=== PATIENT | female | born 1985 | race Caucasian/White ===

== ENCOUNTER 2018-09-13 05:09 | Emergency (ER) | payer SELFPAY | END 2018-09-13 05:11 | disposition left against medical advice (07) | LOC: ER 05:09 | DX: Z53.21 Procedure and treatment not carried out due to patient leaving prior to being seen by health care provider (principal) ==

== ENCOUNTER 2018-09-13 20:43 | Emergency (ER) | payer SELFPAY ==
[2018-09-13] MEDS ORDERED: SULFAMETHOXAZOLE/TRIMETHOPRIM 800-160 MG TABLET PO ONE (21:26)
[2018-09-13] MEDS ORDERED: CEPHALEXIN 500 MG CAPSULE PO ONE (21:26)
[2018-09-13] MEDS ORDERED: PROMETHAZINE HCL 25 MG TABLET PO ONE (21:27)
--- NOTE | 2018-09-13 21:28 | ER Document Report ---
HPI - HPI Time Seen by Provider: 09/13/18 21:18 Pain Level: 4 Context: Patient is a 33-year-old female that comes to the emergency department for chief complaint of redness, pain, and difficulty bending her left ring finger. She states that there is a scab along the side underneath the area of developing redness. She denies injury. 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 She is uncertain of foreign body. She states this happened yesterday and has worsened. She is not a diabetic. - REPRODUCTIVE Reproductive: DENIES: : Past Medical History - General Information source: Patient - Social History Smoking Status: Current Every Day Smoker Frequency of alcohol use: None Drug Abuse: None Lives with: Family Family History: Reviewed & Not Pertinent Patient has suicidal ideation: No Patient has homicidal ideation: No - Medical History Medical History: Negative Renal/ Medical History: Denies: Hx Peritoneal Dialysis Past Surgical History: Reports: Hx Appendectomy, Hx Section, Hx Tons illectomy - Immunizations Immunizations up to date: Yes Hx Diphtheria, Pertussis, Tetanus Vaccination: Yes Vertical Provider Document - CONSTITUTIONAL General Appearance: WD/WN, No Apparent Distress - INFECTION CONTROL TRAVEL OUTSIDE OF THE [place] IN LAST 30 DAYS: No - HEENT HEENT: Atraumatic, Normocephalic - NECK Neck: Normal Inspection - RESPIRATORY Respiratory: Breath Sounds Normal, No Respiratory Distress - CARDIOVASCULAR Cardiovascular: Regular Rate, Regular Rhythm - GI/ABDOMEN Gastrointestinal: Abdomen Soft, Abdomen Non-Tender - BACK Back: Normal Inspection - MUSCULOSKELETAL/EXTREMETIES Musculoskeletal/Extremeties: Tender - Left ring finger with 3 small abrasions over the side of the finger at the lateral aspect, the central abrasion has a scab over it and there is some surrounding erythema, minimal soft tissue swelling, and area consistent with cellulitis. Range of motion is intact. There is no induration or fluctuance to the area. Remaining hand exam unremarkable. Normal capillary refill and sensation. Normal upper extremity exam otherwise. Course - Re-evaluation Re-evalutation: X-ray showing some soft tissue swelling, examination is consistent with a wound and secondary cellulitis. No foreign body. No induration or fluctuance. Range of motion is intact. I discussed with patient. She is not a diabetic, she has not had a fever, she denies any IV drug abuse history, denies any significant past medical history. Wound will be marked, patient will be placed on antibiotics for cellulitis, patient will have close follow-up with orthopedic surgeon in the office, and she will return immediately if she worsens in any way. I discussed this in detail with patient. Patient states understanding and agreement with plan. - Vital Signs Vital signs: Temp Pulse Resp BP Pulse Ox 98.1 F 84 18 133/75 H 100 09/13/18 20:54 09/13/18 20:54 09/13/18 20:54 09/13/18 20:54 09/13/18 20:54 Discharge - Discharge Clinical Impression: Cellulitis of finger of left hand Condition: Stable Disposition: HOME, SELF-CARE Additional Instructions: Take the Bactrim and Keflex antibiotics as prescribed for the infection in the finger. Rest the hand. Keep clean with soap/water, dab dry. Follow up with the Orthopedics referral listed (call tomorrow to set this up). Return to the ED if you worsen in any way (spreading redness, increased swelling or inability to bend the finger, fever/chills, etc. Prescriptions: Cephalexin Monohydrate [Keflex 500 mg Capsule] 500 mg PO QID #28 capsule Promethazine HCl [Phenergan 25 mg Tablet] 25 mg PO Q6H PRN #15 tablet PRN Reason: Sulfamethoxazole/Trimethoprim [Bactrim Ds Tablet] 1 each PO BID #14 tablet Referrals: BARON AGUIRRE DO [ACTIVE STAFF] - Follow up tomorrow
[2018-09-13] MEDS ORDERED: IBUPROFEN 800 MG TABLET PO ONE (21:50)
--- NOTE | 2018-09-13 23:42 | RADIOLOGY REPORT (SQ) ---
EXAM DESCRIPTION: XR FINGERS COMPLETED DATE/TME: 09/13/2018 21:26 CLINICAL HISTORY: 33 years, Female, left ring finger swelling; ? foreign body COMPARISON: None. NUMBER OF VIEWS: 3 TECHNIQUE: 3 views of the left fourth digit LIMITATIONS: None. FINDINGS: Diffuse soft tissue swelling. Negative for acute fracture or dislocation. No soft tissue gas. No radiopaque foreign body. IMPRESSION: Soft tissue swelling. No acute osseous abnormality copyright 2010 [employer]- All Rights Reserved
[2018-09-14 00:35] VITALS: BP 98/50
== END 2018-09-14 00:35 | disposition home or self-care (01) ==
LOC: ER 20:43
DX: S60.415A Abrasion of left ring finger, initial encounter (principal); L03.012 Cellulitis of left finger; X58.XXXA Exposure to other specified factors, initial encounter; F17.200 Nicotine dependence, unspecified, uncomplicated
CPT/HCPCS: 99283

== ENCOUNTER 2018-10-06 10:47 | Emergency (ER) | payer SELFPAY ==
[2018-10-06] MEDS ORDERED: IBUPROFEN 600 MG TABLET PO ONE (12:07)
--- NOTE | 2018-10-06 12:09 | ER Document Report ---
ED Medical Screen (RME) - General Chief Complaint: Abdominal Cramping Stated Complaint: ABDOMINAL PAIN/CRAMPING/FEVER Time Seen by Provider: 10/06/18 11:57 Notes: 33-year-old female patient emergency department complaint of lower pelvic pain and fever. States that she is having some abnormal vaginal bleeding as well. Does not think she is . Denies any other symptoms. Has been wearing a heating pad on her lower abdomen to help. Has not taken anything yet for pain. Has taken some Zofran because she had some nausea. I have greeted and performed a rapid initial assessment of this patient. A comprehensive ED assessment and evaluation of the patient, analysis of test results and completion of the medical decision making process will be conducted by additional ED providers. TRAVEL OUTSIDE OF THE [place] IN LAST 30 DAYS: No - Related Data Allergies/Adverse Reactions: No Known Allergies Allergy (Verified 10/06/18 10:55) Past Medical History Renal/ Medical History: Denies: Hx Peritoneal Dialysis Past Surgical History: Reports: Hx Appendectomy, Hx Section, Hx Tonsillectomy - Immunizations Immunizations up to date: Yes Hx Diphtheria, Pertussis, Tetanus Vaccination: Yes Physical Exam - Vital signs Vitals: Temp Pulse Resp BP Pulse Ox 98.2 F 92 16 124/75 99 10/06/18 10:55 10/06/18 10:55 10/06/18 10:55 10/06/18 10:55 10/06/18 10:55 Course - Vital Signs Vital signs: Temp Pulse Resp BP Pulse Ox 98.2 F 92 16 124/75 99 10/06/18 10:55 10/06/18 10:55 10/06/18 10:55 10/06/18 10:55 10/06/18 10:55
[2018-10-06 12:48] LABS: APPEARANCE,URINE SLIGHTLY-CLOUDY; BILIRUBIN,URINE NEGATIVE (NEGATIVE); COLOR,URINE YELLOW; GLUCOSE, URINE NEGATIVE (NEGATIVE); KETONES,URINE NEGATIVE (NEGATIVE); LEUKOCYTE ESTERASE,URINE MODERATE (NEGATIVE); NITRITE,URINE NEGATIVE (NEGATIVE); PROTEIN,URINE NEGATIVE (NEGATIVE); UROBILINOGEN,URINE NEGATIVE mg/dL (<2.0)
--- NOTE | 2018-10-06 12:50 | ER Document Report ---
ED General - General Chief Complaint: Abdominal Cramping Stated Complaint: ABDOMINAL PAIN/CRAMPING/FEVER Time Seen by Provider: 10/06/18 11:57 TRAVEL OUTSIDE OF THE [place] IN LAST 30 DAYS: No - HPI Notes: Patient is a 33-year-old female who presents the emergency department complaining of lower pelvic pain primarily to the midline, but does go bilaterally with some vaginal discharge noted over the last couple days. Patient states that she is also had nasal congestion/discharge, dry nonproductive cough, and feeling feverish over the last day as well. She still eating and drinking without difficulty. She is urinating normally and having normal bowel movements although she has issues with constipation. Denies drug allergies. Patient is not sure if she is . Denies any headache, neck pain, sore throat, chest pain, palpitations, syncope, shortness of breath, wheeze, dyspnea, nausea/vomiting/diarrhea, urinary retention, dysuria, hematuria, back pain, or rash. Surgical history of appendectomy. - Related Data Allergies/Adverse Reactions: No Known Allergies Allergy (Verified 10/06/18 10:55) Past Medical History - Social History Smoking Status: Current Every Day Smoker Frequency of alcohol use: Occasional Drug Abuse: None Family History: Reviewed & Not Pertinent Patient has suicidal ideation: No Patient has homicidal ideation: No Renal/ Medical History: Denies: Hx Peritoneal Dialysis Past Surgical History: Reports: Hx Appendectomy, Hx Section, Hx Rectal Surgery, Hx Tonsillectomy - Immunizations Immunizations up to date: Yes Hx Diphtheria, Pertussis, Tetanus Vaccination: Yes Review of Systems - Review of Systems -: Yes All other systems reviewed and negative Physical Exam - Vital signs Vitals: Temp Pulse Resp BP Pulse Ox 98.2 F 92 16 124/75 99 10/06/18 10:55 10/06/18 10:55 10/06/18 10:55 10/06/18 10:55 10/06/18 10:55 - Notes Notes: PHYSICAL EXAMINATION: GENERAL: Well-appearing, well-nourished and in no acute distress. HEAD: Atraumatic, normocephalic. EYES: Pupils equal round and reactive to light, extraocular movements intact, conjunctiva are normal. ENT: Nares patent with clear discharge, oropharynx clear withoutexudates. Moist mucous membranes. EAC's clear bilaterally. TMs intact bilaterally without erythema fluid or perforation. No tonsillar hypertrophy or erythema. No sinus tenderness. NECK: Normal range of motion, supple without lymphadenopathy LUNGS: Breath sounds clear to auscultation bilaterally and equal. No wheezes rales or rhonchi. HEART: Regular rate and rhythm without murmurs ABDOMEN: Soft, nondistended abdomen. No guarding, no rebound. Normal bowel sounds present. CVA tenderness negative bilaterally. + lower pelvic tenderness. Female : No inguinal adenopathy. External genitalia without erythema, lesions, or masses. Vaginal mucosa pink with purulent discharge. Cervix parous, pink, and without discharge. Uterus is smooth. No adnexal tenderness. + mild CMT. accompanied by female pctramesh. Musculoskeletal: FROM to passive/active. Strength 5+/5. Extremities: No cyanosis/clubbing/edema b/l. Peripheral pulses 2+. Capillary refill less than 3 seconds. NEUROLOGICAL: Normal speech, normal gait. PSYCH: Normal mood, normal affect. SKIN: Warm, Dry, normal turgor, no rashes or lesions noted. Course - Re-evaluation Re-evalutation: 10/06/18 15:33 Patient is an afebrile, well-hydrated, 33-year-old female who presents to the ED with an acute URI, pelvic pain, and ovarian cyst, ?PID/UTI. Vitals are acceptable without any significant tachycardia, tachypnea, or hypoxia. PE did show mild + CMT. HCG negative. See UA/UC pending. See wet mount results. Chlam/gonorrhea tests are pending. Patient given rocephin and zithromax. Patient is nontoxic-appearing is tolerating p.o. without any difficulties. Transvaginal ultrasound showed hemorrhagic cyst rt side. No other labs or imaging warranted at this time based on H&P. Low suspicion/risk for acute appendicitis, bowel obstruction, acute cholecystitis, acute cholangitis, perforated diverticulitis, incarcerated hernia, pancreatitis, perforated ulcer, peritonitis, sepsis, ectopic , tubo-ovarian abscess, ovarian torsion, or other systemic emergent condition at this time. Patient is aware that her condition can change from initial presentation and she needs to monitor symptoms closely and seek medical attention if any acute changes. I will send her home with prescription for doxy and naproxen. Conservative measures otherwise for symptoms. Recheck with your PCM/OBGYN in 3-5 days. Return to the ED with any worsening/concerning symptoms otherwise as reviewed in discharge. Patient is in agreement. - Vital Signs Vital signs: Temp Pulse Resp BP Pulse Ox 98.2 F 92 16 124/75 99 10/06/18 10:55 10/06/18 10:55 10/06/18 10:55 10/06/18 10:55 10/06/18 10:55 - Laboratory Laboratory results interpreted by me: 10/06/18 12:12 Urine Blood SMALL H Ur Leukocyte Esterase MODERATE H Procedures - Pelvic Exam Pelvic exam Time completed: 12:45 Cultures obtained: Yes Wet prep obtained: Yes Bimanual exam performed: Yes - mildly positive Witnessed by: jose g chandler Discharge - Discharge Clinical Impression: Pelvic pain, Acute URI Ovarian cyst Qualifiers: Laterality: right Qualified Code(s): N83.201 - Unspecified ovarian cyst, right side Condition: Stable Disposition: HOME, SELF-CARE Instructions: Pelvic Pain ([facility]), Ovarian Cyst ([facility]) Additional Instructions: Maintain fluid intake Proper hygienic technique Keep the skin clean Safe sexual practices with condoms everytime Tylenol/ibuprofen as needed F/u with your PCM/OBGYN in 3-5 days for a recheck Return to the ED with any development of CAMEJO/fever, trouble with vision, eye redness, worsening pain, urethral discharge, urinary retention, blood in the urine, flank pain, abdominal pain, n/v, Chest Pain, shortness of breath, joint pains, trouble breathing, or any other worsening/concerning symptoms as needed otherwise. Prescriptions: Doxycycline Hyclate 100 mg PO BID #28 capsule Naproxen 500 mg PO BID #20 tablet Forms: Smoking Cessation Education Referrals: [facility] [Provider Group] - Follow up as needed
[2018-10-06 13:32] LABS: BACTERIA (WET MOUNT) 4+ BACTERIA SEEN; RBCS (WET MOUNT) NO RBCS SEEN; T.VAGINALIS (WET MOUNT) NO TRICHOMONAS SEEN; WBCS (WET MOUNT) 4+ WBCS SEEN; YEAST (WET MOUNT) NO YEAST SEEN
[2018-10-06] MEDS ORDERED: LIDOCAINE 1% INJ-PF (10 MG/ML) 30 ML SDV INJ ONE (13:34)
[2018-10-06] MEDS ORDERED: CEFTRIAXONE INJ 250 MG VIAL IM ONE (13:34)
[2018-10-06] MEDS ORDERED: AZITHROMYCIN 250 MG TABLET PO ONE (13:34)
[2018-10-06] MEDS ORDERED: ONDANSETRON 4 MG TAB.RAPDIS PO ONE (13:57)
[2018-10-06 15:02] LABS: CHLAM PCR NOT DETECTED (NOT DETECT); GON PCR NOT DETECTED (NOT DETECT)
--- NOTE | 2018-10-06 15:17 | RADIOLOGY REPORT (SQ) ---
EXAM DESCRIPTION: U/S NON OB PEL TV W/DOPPLER COMPLETED DATE/TIME: 10/06/2018 2:47 pm REASON FOR STUDY: pelvic pain COMPARISON: None. TECHNIQUE: Dynamic and static grayscale images acquired of the pelvis via transvaginal approach and recorded on PACS. Additional selected color Doppler and spectral images recorded. LIMITATIONS: None. FINDINGS: UTERUS: Contour normal. No mass. ENDOMETRIAL STRIPE: No focal or generalized thickening. No masses. CERVIX: No nabothian cysts. RIGHT OVARY AND DOPPLER: Normal size. 1.8 cm system with internal echoes. No worrisome masses. Norm al arterial vascular flow without evidence for torsion. LEFT OVARY AND DOPPLER: Normal size. No worrisome masses. Normal arterial vascular flow without evide nce for torsion. FREE FLUID: Small amount. OTHER: No other significant finding. MEASUREMENTS: UTERUS: 8.6 x 5.0 x 4.1 cm ENDOMETRIAL STRIPE: 8 mm RIGHT OVARY: 2.9 x 1.9 x 2.4 cm LEFT OVARY: 2.7 x 2.2 x 2.1 cm IMPRESSION: Small hemorrhagic cyst right ovary. TECHNICAL DOCUMENTATION: JOB ID: [id number]- All Rights Reserved Rev-01/16 Reading location - IP/workstation name: [email or web address]
[2018-10-06 15:52] VITALS: BP 116/82
== END 2018-10-06 15:53 | disposition home or self-care (01) ==
LOC: ER 10:47
DX: N83.201 Unspecified ovarian cyst, right side (principal); R10.2 Pelvic and perineal pain; J06.9 Acute upper respiratory infection, unspecified; N89.8 Other specified noninflammatory disorders of vagina; R05 Cough; R09.81 Nasal congestion; F17.200 Nicotine dependence, unspecified, uncomplicated
CPT/HCPCS: 99284; 96372; 36415; 87086; 87210; 81025; 81001; 87491; 87591; 76830; 93976; S0119; J3490; J0696

== ENCOUNTER 2018-11-28 17:57 | Emergency (ER) | payer SELFPAY ==
[2018-11-28 18:02] VITALS: BP 135/81
--- NOTE | 2018-11-28 18:41 | ER Document Report ---
ED Skin Rash/Insect Bite/Abscs - General Chief Complaint: Skin Sore(s) Stated Complaint: LEG PAIN Time Seen by Provider: 11/28/18 18:21 Mode of Arrival: Ambulatory Information source: Patient Notes: 33-year-old female presented to ED for complaint of painful rash to bilateral lower extremities and redness swelling and tenderness to bilateral knees. She states she has been trying to take care of herself but the pain and redness has increased. She is alert oriented respirations regular and unlabored speaking in full sentences walks with a even steady gait. TRAVEL OUTSIDE OF THE [place] IN LAST 30 DAYS: No - HPI Patient complains to provider of: Skin rash/lesion, Tender/swollen area Onset: Other Onset/Duration: Gradual - Several weeks getting worse, Worse Quality of pain: Burning, Sharp Severity: Moderate Pain Level: 4 Skin Character: Erythema, Rash, Swelling, Tenderness Quality of rash: Painful Identify cause: No Exacerbated by: Other - Moving walking and shaving Relieved by: Denies Similar symptoms previously: Yes Recently seen / treated by doctor: No - Related Data Allergies/Adverse Reactions: No Known Allergies Allergy (Verified 11/28/18 17:57) Past Medical History - General Information source: Patient - Social History Smoking Status: Former Smoker - Vapor cigarette only now Cigarette use (# per day): No Chew tobacco use (# tins/day): No Smoking Education Provided: No Frequency of alcohol use: Social Drug Abuse: Marijuana Lives with: Family Family History: Reviewed & Not Pertinent Patient has suicidal ideation: No Patient has homicidal ideation: No - Past Medical History Cardiac Medical History: Reports: None Pulmonary Medical History: Reports: None EENT Medical History: Reports: None Neurological Medical History: Reports: None Endocrine Medical History: Reports: None Renal/ Medical History: Reports: Hx Ovarian Cysts Malignancy Medical History: Reports: None GI Medical History: Reports: Hx Hepatitis - c, Hx Irritable Bowel, Other - fissure Musculoskeletal Medical History: Reports None Skin Medical History: Reports Hx Cellulitis, Reports Hx Eczema, Reports Hx Psoriasis Psychiatric Medical History: Reports: Hx Anxiety, Other - panic attack Traumatic Medical History: Reports: Hx Spine Fracture - lumbar Infectious Medical History: Reports: Hx Hepatitis - c Past Surgical History: Reports: Hx Appendectomy, Hx Section, Hx Rectal Surgery, Hx Tonsillectomy - Immunizations Immunizations up to date: Yes Hx Diphtheria, Pertussis, Tetanus Vaccination: Yes Review of Systems - Review of Systems Constitutional: No symptoms reported EENT: No symptoms reported Cardiovascular: No symptoms reported Respiratory: No symptoms reported Gastrointestinal: No symptoms reported Genitourinary: No symptoms reported Female Genitourinary: No symptoms reported Musculoskeletal: No symptoms reported Skin: No symptoms reported Hematologic/Lymphatic: No symptoms reported Neurological/Psychological: No symptoms reported Physical Exam - Vital signs Vitals: Temp Pulse Resp BP Pulse Ox 98.4 F 72 18 135/81 H 99 11/28/18 18:01 11/28/18 18:01 11/28/18 18:01 11/28/18 18:01 11/28/18 18:01 Interpretation: Normal - General General appearance: Appears well, Alert - HEENT Head: Normocephalic, Atraumatic Eyes: Normal Pupils: PERRL - Respiratory Respiratory status: No respiratory distress Chest status: Nontender Breath sounds: Normal Chest palpation: Normal - Cardiovascular Rhythm: Regular Heart sounds: Normal auscultation Murmur: No - Abdominal Inspection: Normal Distension: No distension Bowel sounds: Normal Tenderness: Nontender Organomegaly: No organomegaly - Back Back: Normal, Nontender - Extremities General upper extremity: Normal inspection, Nontender, Normal color, Normal ROM, Normal temperature General lower extremity: Normal ROM, Normal temperature, Normal weight bearing. No: Gurpreet's sign Knee: Tender, Pain with ROM, Patellar tendon intact, Other - Erythema. No: Popliteal fossa tender Calf: Tender, Other - Erythema, rash Ankle: Normal, Nontender Foot: Normal, Nontender - Neurological Neuro grossly intact: Yes Cognition: Normal Orientation: AAOx4 Alisha Coma Scale Eye Opening: Spontaneous [place] Coma Scale Verbal: Oriented [place] Coma Scale Motor: Obeys Commands Alisha Coma Scale Total: 15 Speech: Normal Motor strength normal: LUE, RUE, LLE, RLE Sensory: Normal - Psychological Associated symptoms: Normal affect, Normal mood - Skin Skin Temperature: Warm Skin Moisture: Dry Skin Color: Normal Course - Re-evaluation Re-evalutation: 11/28/18 20:00 Patient started on Bactrim Keflex and instructed in use of Epsom salt soaks. She was also instructed on use of Eucerin cream mixed with vitamin E oil and s teroid cream for her psoriasis. - Vital Signs Vital signs: Temp Pulse Resp BP Pulse Ox 98.4 F 72 18 135/81 H 99 11/28/18 18:01 11/28/18 18:01 11/28/18 18:01 11/28/18 18:01 11/28/18 18:01 Discharge - Discharge Clinical Impression: psoriasis both lower legs, Bilateral cellulitis of lower leg Condition: Stable Disposition: HOME, SELF-CARE Instructions: Family Physicians / Practices Additional Instructions: Psoriasis You have psoriasis. This is a common disease, but the cause is unknown. Psoriasis often runs in families. The skin blemishes are usually red with a thick, silvery scale. It is most commonly seen over the knees, elbows, and scalp. The nails may become thickened or pitted. Psoriasis is treated with cortisone cream. You can wrap the area with plastic wrap overnight to increase the effectiveness of the cream. Tar preparations may be used on non-hairy areas. Medicated shampoos are often prescribed. Management by a tester operator helper is advised. CELLULITIS: You have an infection of your skin and underlying soft tissues called cellulitis. This is due to bacteria, which can enter through any break in the skin, or even through an irritated hair follicle. Untreated, cellulitis will usually worsen. Antibiotics are required. Usually, warm packs or warm soaks, and elevation of the infected area are recommended. You should start getting better within 24 to 36 hours. Most infections respond quickly to the right medication. Follow-up care is important, however, to check for abscess (boil) formation, unsuspected foreign body, or resistant infection. If you develop fever, chills, or if the area of infection is becoming rapidly more swollen or painful, call the doctor at once. MRSA CELLULITIS: You have an infection of your skin and underlying soft tissues called cellulitis. This is due to bacteria, which can enter through any break in the skin, or even through an irritated hair follicle. Untreated, cellulitis will usually worsen and may form an abscess which requires draining. Although many bacterial organisms can cause cellulitis and abscess formations, the most likely bacteria is Methicillin-Resistant Staph Aureus, or MRSA for short. Antibiotics are required. Usually, warm packs or warm soaks, and elevation of the infected area are recommended. You should start getting better within 24 to 36 hours. Most infections respond quickly to the right medication. Follow-up care is important, however, to check for abscess (boil) formation, unsuspected foreign body, or resistant infection. If you develop fever, chills, or if the area of infection is becoming rapidly more swollen or painful, call the doctor at once. TRIMETHOPRIM-SULFA: You have been given a prescription for trimethoprim-sulfa (TMS, Septra, Bactrim). This is a combination antibiotic of the sulfa class, often used for urinary tract infections, middle ear infections, bronchitis, shigella intestinal infection, and Pneumocystis pneumonia. TMS is usually well-tolerated. Occasional side effects include nausea and decreased appetite. Septra is not recommended for infants less than two months of age. Do not take this medication if you have experienced severe side effects or allergy to sulfa medicine. You should stop this medicine at once and contact your physician if you develop any rash, joint pain, shortness of breath, bruising, or jaundice (yellow color in the skin), or if you develop any other new or unusual symptoms. Cephalexin The antibiotic you've been prescribed is a member of the cephalosporin class. This type of antibiotic covers a wide variety of infections, including those of the skin, lungs, and urinary tract. It's useful for staph infections. This antibiotic is slightly similar to the penicillin family. In rare cases, a person who is allergic to penicillin will also be allergic to this medication. If you have had a severe allergic reaction to penicillin, and have not taken this antibiotic since that time, notify your doctor. Antibiotics which cover many germs ("broad spectrum" antibiotics) are more likely to cause diarrhea or "yeast" infections. Women prone to vaginal yeast problems may suffer an attack after taking this antibiotic. In infants, oral thrush (white spots "stuck" on the cheek) or yeast diaper rash may result. See your doctor if these problems occur. Call at once if you develop itching, hives, shortness of breath, or lightheadedness. For your psoriasis you could try using Eucerin cream mixed with vitamin E oil as we discussed or steroid creams which you can buy [id number]. If these do not help your symptoms I would advise you to follow-up with a tester operator helper. FOLLOW-UP CARE: If you have been referred to a physician for follow-up care, call the physicians office for an appointment as you were instructed or within the next two days. If you experience worsening or a significant change in your symptoms, notify the physician immediately or return to the Emergency Department at any time for re-evaluation. 1 [facility] [address] [place]jo [address] [facility] [place] Prescriptions: Cephalexin Monohydrate [Keflex 500 mg Capsule] 500 mg PO Q6H 10 Days capsule Sulfamethoxazole/Trimethoprim [Bactrim Ds Tablet] 1 each PO BID #20 tablet Forms: Elevated Blood Pressure
== END 2018-11-28 18:54 | disposition home or self-care (01) ==
LOC: ER 17:57
DX: L40.9 Psoriasis, unspecified (principal); L03.116 Cellulitis of left lower limb; L03.115 Cellulitis of right lower limb; Z86.19 Personal history of other infectious and parasitic diseases
CPT/HCPCS: 99283

== ENCOUNTER 2019-01-14 11:49 | Emergency (ER) | payer SELFPAY ==
[2019-01-14 12:11] VITALS: BP 135/96
--- NOTE | 2019-01-14 12:16 | ER Document Report ---
ED Skin Rash/Insect Bite/Abscs - General Chief Complaint: Skin Problem Stated Complaint: WRIST PAIN Time Seen by Provider: 01/14/19 12:03 Mode of Arrival: Ambulatory Information source: Patient Notes: 34-year-old female presented to ED for rash with cellulitis to bilateral legs and the right arm. She states that she got completely relief from symptoms when she was seen in October then she shaved a bout a week and a half ago then symptoms returned. She states she has not followed up with dermatology as yet. She states she does not have insurance at this time. TRAVEL OUTSIDE OF THE [place] IN LAST 30 DAYS: No - HPI Patient complains to provider of: Skin rash/lesion, Tender/swollen area Onset: Last week Onset/Duration: Gradual, Persistent Quality of pain: Burning, Sharp Pain Level: 2 Skin Character: Erythema, Macules, Papules, Rash, Scales, Swelling, Tenderness, Thickening Skin Temperature: Warm Quality of rash: Itchy, Painful Identify cause: Yes Exacerbated by: Other - Shaving Relieved by: Denies Similar symptoms previously: Yes Recently seen / treated by doctor: No - Related Data Allergies/Adverse Reactions: No Known Allergies Allergy (Verified 01/14/19 11:50) Past Medical History - General Information source: Patient - Social History Smoking Status: Current Every Day Smoker - Vapor cigarettes Frequency of alcohol use: Social Drug Abuse: Marijuana Lives with: Family Family History: Reviewed & Not Pertinent Patient has suicidal ideation: No Patient has homicidal ideation: No - Past Medical History Cardiac Medical History: Reports: None Pulmonary Medical History: Reports: None EENT Medical History: Reports: None Neurological Medical History: Reports: None Endocrine Medical History: Reports: None Renal/ Medical History: Reports: Hx Ovarian Cysts Malignancy Medical History: Reports: None GI Medical History: Reports: Hx Hepatitis - c, Hx Irritable Bowel Musculoskeletal Medical History: Reports Hx Musculoskeletal Deformity, Reports Hx Musculoskeletal Trauma Skin Medical History: Reports Hx Cellulitis, Reports Hx Eczema, Reports Hx Psor iasis Psychiatric Medical History: Reports: Hx Anxiety Traumatic Medical History: Reports: Hx Spine Fracture - lumbar Infectious Medical History: Reports: Hx Hepatitis - c Past Surgical History: Reports: Hx Appendectomy, Hx Section, Hx Rectal Surgery, Hx Tonsillectomy - Immunizations Immunizations up to date: Yes Hx Diphtheria, Pertussis, Tetanus Vaccination: Yes Review of Systems - Review of Systems Constitutional: No symptoms reported EENT: No symptoms reported Cardiovascular: No symptoms reported Respiratory: No symptoms reported Gastrointestinal: No symptoms reported Genitourinary: No symptoms reported Female Genitourinary: No symptoms reported Musculoskeletal: No symptoms reported Skin: Rash, Other - Cellulitis Hematologic/Lymphatic: No symptoms reported Neurological/Psychological: No symptoms reported -: Yes All other systems reviewed and negative Physical Exam - Vital signs Vitals: Temp Pulse BP Pulse Ox 98.0 F 55 L 135/96 H 93 01/14/19 11:56 01/14/19 11:56 01/14/19 11:56 01/14/19 11:56 Interpretation: Normal - General General appearance: Appears well, Alert - HEENT Head: Normocephalic, Atraumatic Eyes: Normal Pupils: PERRL - Respiratory Respiratory status: No respiratory distress Chest status: Nontender Breath sounds: Normal Chest palpation: Normal - Cardiovascular Rhythm: Regular Heart sounds: Normal auscultation Murmur: No - Abdominal Inspection: Normal Distension: No distension Bowel sounds: Normal Tenderness: Nontender Organomegaly: No organomegaly - Back Back: Normal, Nontender - Extremities General upper extremity: Normal inspection, Nontender, Normal color, Normal ROM, Normal temperature General lower extremity: Normal ROM, Normal temperature, Normal weight bearing. No: Gurpreet's sign Calf: Tender, Other - Psoriasis with cellulitis - Neurological Neuro grossly intact: Yes Cognition: Normal Orientation: AAOx4 [place] Coma Scale Eye Opening: Spontaneous Alisha Coma Scale Verbal: Oriented Alisha Coma Scale Motor: Obeys Commands [place] Coma Scale Total: 15 Speech: Normal Motor strength normal: LUE, RUE, LLE, RLE Sensory: Normal - Psychological Associated symptoms: Normal affect, Normal mood - Skin Skin Temperature: Warm Skin Moisture: Dry Skin Color: Normal Skin irregularity: Erythema, Plaque, Rash Location of irregularity: Extremities Character of irregularity: Maculopapular, Erythematous Irregularity with: Tenderness, Thickening, Scaling, Inflammation Course - Vital Signs Vital signs: Temp Pulse Resp BP Pulse Ox 98.0 F 55 L 135/96 H 93 01/14/19 11:56 01/14/19 11:56 01/14/19 11:56 01/14/19 11:56 Discharge - Discharge Clinical Impression: psorias bilateral legs, Bilateral cellulitis of lower leg Condition: Stable Disposition: HOME, SELF-CARE Instructions: Family Physicians / Practices Additional Instructions: Psoriasis You have psoriasis. This is a common disease, but the cause is unknown. Psoriasis often runs in families. The skin blemishes are usually red with a thick, silvery scale. It is most commonly seen over the knees, elbows, and s calp. The nails may become thickened or pitted. Psoriasis is treated with cortisone cream. You can wrap the area with plastic wrap overnight to increase the effectiveness of the cream. Tar pre parations may be used on non-hairy areas. Medicated shampoos are often prescribed. Management by a nuclear physicist is advised. CELLULITIS: You have an infection of your skin and underlying soft tissues called cellulitis. This is due to bacteria, which can enter through any break in the skin, or even through an irritated hair follicle. Untreated, cellulitis will usually worsen. Antibiotics are required. Usually, warm packs or warm soaks, and elevation of the infected area are recommended. You should start getting better within 24 to 36 hours. Most infections respond quickly to the right medication. Follow-up care is important, however, to check for abscess (boil) formation, unsuspected foreign body, or resistant infection. If you develop fever, chills, or if the area of infection is becoming rapidly more swollen or painful, call the doctor at once. ANTIBIOTIC THERAPY: You have been given an antibiotic prescription. It's important that you t yolette all the medication, unless instructed otherwise by your physician. Failure to complete the entire course can result in relapse of your condition. Common side effects of antibiotics include nausea, intestinal cramping, or diarrhea. Women may develop vaginal yeast infections, and babies can get yeast (thrush) in the mouth following the use of antibiotics. Contact your physician if you develop significant side effects from this medication. Allergy to this antibiotic can result in hives, wheezing, faintness, or itching. If symptoms of allergy occur, stop the medication and call the doctor. TRIMETHOPRIM-SULFA: You have been given a prescription for trimethoprim-sulfa (TMS, Septra, Bactrim). This is a combination antibiotic of the sulfa class, often used for urinary tract infections, middle ear infections, bronchitis, shigella intestinal infection, and Pneumocystis pneumonia. TMS is usually well-tolerated. Occasional side effects include nausea and decreased appetite. Septra is not recommended for infants less than two months of age. Do not take this medication if you have experienced severe side effects or allergy to sulfa medicine. You should stop this medicine at once and contact your physician if you develop any rash, joint pain, shortness of breath, bruising, or jaundice (yellow color in the skin), or if you develop any other new or unusual symptoms. Cephalexin The antibiotic you've been prescribed is a member of the cephalosporin class. This type of antibiotic covers a wide variety of infections, including those of the skin, lungs, and urinary tract. It's useful for staph infections. This antibiotic is slightly similar to the penicillin family. In rare cases, a person who is allergic to penicillin will also be allergic to this medication. If you have had a severe allergic reaction to penicillin, and have not taken this antibiotic since that time, notify your doctor. Antibiotics which cover many germs ("broad spectrum" antibiotics) are more likely to cause diarrhea or "yeast" infections. Women prone to vaginal yeast problems may suffer an attack after taking this antibiotic. In infants, oral thrush (white spots "stuck" on the cheek) or yeast diaper rash may result. See your doctor if these problems occur. Call at once if you develop itching, hives, shortness of breath, or lightheadedness. Buy some probiotics and start taking them with the antibiotics to prevent yeast infection. [facility] 5.0 (4) [employer] [address] [facility] [address] Dr. Osvaldo Reid, DO 2.5 (11) [employer] [address] [facility] 2.8 (20) [facility] [address] FOLLOW-UP CARE: If you have been referred to a physician for follow-up care, call the physicians office for an appointment as you were instructed or within the next two days. If you experience worsening or a significant change in your symptoms, notify the physician immediately or return to the Emergency Department at any time for re-evaluation. Prescriptions: Cephalexin Monohydrate [Keflex 500 mg Capsule] 500 mg PO QID #28 capsule Ondansetron [Zofran Odt 4 mg Tablet] 1 tab PO Q6H #15 tab.rapdis Sulfamethoxazole/Trimethoprim [Bactrim Ds Tablet] 1 each PO BID #20 tablet Forms: Elevated Blood Pressure, Smoking Cessation Education, Return to Work
[2019-01-14] MEDS ORDERED: CEPHALEXIN 500 MG CAPSULE PO ONE (12:17)
[2019-01-14] MEDS ORDERED: ONDANSETRON 4 MG TAB.RAPDIS PO ONE (12:17)
[2019-01-14] MEDS ORDERED: SULFAMETHOXAZOLE/TRIMETHOPRIM 800-160 MG TABLET PO ONE (12:17)
== END 2019-01-14 12:24 | disposition home or self-care (01) ==
LOC: ER 11:49
DX: L03.116 Cellulitis of left lower limb (principal); L03.115 Cellulitis of right lower limb; L40.9 Psoriasis, unspecified; F17.290 Nicotine dependence, other tobacco product, uncomplicated; F12.10 Cannabis abuse, uncomplicated
CPT/HCPCS: 99283; S0119

== ENCOUNTER 2019-07-20 17:10 | Emergency (ER) | payer OTHER ==
[2019-07-20] MEDS ORDERED: KETOROLAC TROMETHAMINE INJ/PF 30 MG/1 ML SDV IV ONE (17:46)
--- NOTE | 2019-07-20 17:48 | ER Document Report ---
ED Medical Screen (RME) - General Chief Complaint: Abscess Stated Complaint: NAUSEA,LEG PAINS Time Seen by Provider: 07/20/19 17:26 Notes: Patient is a 34-year-old female who presents to emergency department with a chief complaint of a possible abscess to her right anterior tatum. Patient states that she has had this problem on and off since October. Patient had some leftover clindamycin from when she saw her primary care provider a couple months ago and she started taking clindamycin today. She has had 2 doses and her last dose was at 1630 this afternoon. Patient states that she has had some body aches, chills, and a fever. She also feels nauseous and has had some vomiting. Patient has a history of IV drug abuse. Exam: Edema and erythema noted to right anterior tatum. Tender to touch. I have greeted and performed a rapid initial assessment of this patient. A comprehensive ED assessment and evaluation of the patient, analysis of test results and completion of medical decision making process will be conducted by an additional ED providers. TRAVEL OUTSIDE OF THE [place] IN LAST 30 DAYS: No - Related Data Allergies/Adverse Reactions: No Known Allergies Allergy (Verified 07/20/19 17:22) Past Medical History Renal/ Medical History: Reports: Hx Ovarian Cysts. Denies: Hx Peritoneal Dialysis GI Medical History: Reports: Hx Hepatitis - c, Hx Irritable Bowel Musculoskeltal Medical History: Reports Hx Musculoskeletal Deformity, Reports Hx Musculoskeletal Trauma Skin Medical History: Reports Hx Cellulitis, Reports Hx Eczema, Reports Hx Psoriasis Psychiatric Medical History: Reports: Hx Anxiety Traumatic Medical History: Reports: Hx Spine Fracture - lumbar Infectious Medical History: Reports: Hx Hepatitis - c Past Surgical History: Reports: Hx Appendectomy, Hx Section, Hx Rectal Surgery, Hx Tonsillectomy - Immunizations Immunizations up to date: Yes Hx Diphtheria, Pertussis, Tetanus Vaccination: Yes
[2019-07-20] MEDS ORDERED: ONDANSETRON HCL INJ/PF 4 MG/2 ML SDV IV ONE (17:49)
[2019-07-20] MEDS ORDERED: LIDOCAINE 4% TRANSPARENT DRESSING 5 GM KIT TP ONE (18:20)
[2019-07-20] MEDS ORDERED: CEPHALEXIN 500 MG CAPSULE PO ONE (18:22)
[2019-07-20] MEDS ORDERED: FENTANYL CITRATE INJ/PF 100 MCG/2 ML AMPUL IV ONE ×2 (18:22→20:11)
[2019-07-20] MEDS ORDERED: SULFAMETHOXAZOLE/TRIMETHOPRIM 800-160 MG TABLET PO ONE (18:22)
--- NOTE | 2019-07-20 18:24 | ER Document Report ---
HPI - HPI Patient complains to provider of: abscess Time Seen by Provider: 07/20/19 17:26 Onset: Other - 4 days Onset/Duration: Gradual Quality of pain: Sharp Pain Level: 4 Context: Patient presents complaining of abscess to the right lower extremity for the past 4 days. Patient reports subjective fever. Patient states that she had leftover clindamycin and started taking that medicine x3 doses today. Patient also states that she cuts the area on her leg open with a razor 2 days ago in an attempt to drain the abscess. Patient does have a history of MRSA. Patient reports a distant history of IV drug use with last use 5 years ago. Associated Symptoms: Other - Right lower extremity abscess. denies: Fever Exacerbated by: Movement Relieved by: Denies Similar symptoms previously: Yes Recently seen / treated by doctor: No - ROS ROS below otherwise negative: Yes Systems Reviewed and Negative: Yes All other systems reviewed and negative - CONSTITUTIONAL Constitutional: DENIES: Chills - GASTROINTESTINAL Gastrointestinal: DENIES: Nausea, Patient vomiting - REPRODUCTIVE Reproductive: DENIES: : - MUSCULOSKELETAL Musculoskeletal: REPORTS: Extremity pain, Swelling - DERM Skin Color: Erythema Notes: Abscess to right leg Past Medical History - General Information source: Patient - Social History Smoking Status: Former Smoker Frequency of alcohol use: Occasional Drug Abuse: Heroin - Last use 5 years ago, Marijuana Lives with: Family Family History: Reviewed & Not Pertinent Patient has suicidal ideation: No Patient has homicidal ideation: No Renal/ Medical History: Reports: Hx Ovarian Cysts. Denies: Hx Peritoneal Dialysis GI Medical History: Reports: Hx Hepatitis - c, has been treated, Hx Irritable Bowel Musculoskeletal Medical History: Reports Hx Musculoskeletal Deformity, Reports Hx Musculoskeletal Trauma Skin Medical History: Reports Hx Cellulitis, Reports Hx Eczema, Reports Hx MRSA, Reports Hx Psoriasis Psychiatric Medical History: Reports: Hx Anxiety Traumatic Medical History: Reports: Hx Spine Fracture - lumbar Infectious Medical History: Reports: Hx Hepatitis - c Past Surgical History: Reports: Hx Appendectomy, Hx Section, Hx Rectal Surgery, Hx Tonsillectomy - Immunizations Immunizations up to date: Yes Hx Diphtheria, Pertussis, Tetanus Vaccination: Yes Vertical Provider Document - CONSTITUTIONAL Agree With Documented VS: Yes Exam Limitations: No Limitations General Appearance: WD/WN, No Apparent Distress - INFECTION CONTROL TRAVEL OUTSIDE OF THE [place] IN LAST 30 DAYS: No - HEENT HEENT: Atraumatic, Normocephalic - NECK Neck: Normal Inspection, Supple. negative: Lymphadenopathy-Left, Lymphadenopathy-Right - RESPIRATORY Respiratory: Breath Sounds Normal, No Respiratory Distress - CARDIOVASCULAR Cardiovascular: Regular Rate, Regular Rhythm, No Murmur - BACK Back: Normal Inspection - MUSCULOSKELETAL/EXTREMETIES Musculoskeletal/Extremeties: MAEW - NEURO Level of Consciousness: Awake, Alert, Appropriate Motor/Sensory: No Motor Deficit - DERM Integumentary: Warm, Dry, Abscess - Patient with a fluctuant abscess to anterior aspect of right lower leg with surrounding erythema Course - Re-evaluation Re-evalutation: 07/20/19 18:23 Patient presents with abscess with surrounding cellulitis. Will perform incision and drainage procedure. Wound culture will be obtained patient started on antibiotics. Patient with stable vital signs, no concern for sepsis at this time. - Vital Signs Vital signs: Temp Pulse Resp BP Pulse Ox 98.0 F 94 20 149/89 H 99 07/20/19 17:21 07/20/19 17:21 07/20/19 17:21 07/20/19 17:21 07/20/19 17:21 - Laboratory Result Diagrams: 07/20/19 18:10 07/20/19 18:10 Procedures - Incision and Drainage Right Leg Type: Simple Anesthetic type: 1% Lidocaine Blade size: 11 I&D procedure: Betadine prep applied Incision Method: Incision made by scalpel Amount/type of drainage: Small amount of purulent drainage Discharge - Discharge Clinical Impression: Leg abscess, Encounter for incision and drainage procedure Cellulitis Qualifiers: Site of cellulitis: extremity Site of cellulitis of extremity: lower extremity Laterality: right Qualified Code(s): L03.115 - Cellulitis of right lower limb Condition: Good Disposition: HOME, SELF-CARE Instructions: Abscess ([facility]), Cephalexin ([facility]), Post Incision and Drainage, Tr imethoprim-Sulfa ([facility]) Additional Instructions: Return immediately for any new or worsening symptoms Followup with your primary care provider, call tomorrow to make a followup appointment Wound culture is pending, we will call if you need any different treatment Prescriptions: Sulfamethoxazole/Trimethoprim [Bactrim Ds Tablet] 1 each PO BID #20 tablet Mupirocin [Bactroban 2% Ointment 22 gm] 1 applic TP TID #22 gm Fluconazole [Diflucan] 150 mg PO ONCE PRN #1 tablet PRN Reason: Cephalexin Monohydrate [Keflex 500 mg Capsule] 500 mg PO Q6H 7 Days capsule Naproxen [Naprosyn 250 Nmg Tablet] 1 tab PO BID #14 tablet Referrals: PAYTON SÁNCHEZ MD [Primary Care Provider] - Follow up as needed
[2019-07-20 18:29] LABS: ABSOLUTE BASOPHILS # (AUTO) 0.1 10^3/uL (0.0-0.2); ABSOLUTE EOSINOPHILS # (AUTO) 0.1 10^3/uL (0.0-0.6); ABSOLUTE LYMPHOCYTES (AUTO) 2.9 10^3/uL (0.5-4.7); ABSOLUTE MONOCYTES (AUTO) 0.6 10^3/uL (0.1-1.4); ABSOLUTE NEUT (AUTO) 9.7 10^3/uL (1.7-8.2); BASOPHILS % (AUTO) 0.4 % (0-2); EOSINOPHILS % (AUTO) 0.5 % (0-6); HEMATOCRIT 35.6 % (36.0-47.0); HEMOGLOBIN 12.1 g/dL (12.0-15.5); LYMPHOCYTES % (AUTO) 21.9 % (13-45); MEAN CORPUSCULAR HEMOGLOBIN 30.8 pg (27.0-33.4); MEAN CORPUSCULAR HGB CONC 34.1 g/dL (32.0-36.0); MEAN CORPUSCULAR VOLUME 90 fl (80-97); MONOCYTES % (AUTO) 4.8 % (3-13); PLATELET COUNT 453 10^3/uL (150-450); RED BLOOD COUNT 3.94 10^6/uL (3.72-5.28); SEGMENTED NEUTROPHILS % (AUTO) 72.4 % (42-78); TOTAL CELLS COUNTED % (AUTO) 100 %; WHITE BLOOD COUNT 13.4 10^3/uL (4.0-10.5)
[2019-07-20 18:47] LABS: ALBUMIN 4.7 g/dL (3.5-5.0); ALKALINE PHOSPHATASE 77 U/L (38-126); ANION GAP 13 (5-19); ASPARTATE AMINO TRANSFERASE 22 U/L (14-36); BILIRUBIN,DIRECT 0.1 mg/dL (0.0-0.4); BILIRUBIN,TOTAL 0.3 mg/dL (0.2-1.3); BLOOD UREA NITROGEN 13 mg/dL (7-20); CARBON DIOXIDE 28 mmol/L (22-30); CHLORIDE 103 mmol/L (98-107); GLUCOSE 108 mg/dL (75-110); POTASSIUM 3.4 mmol/L (3.6-5.0); TOTAL PROTEIN 8.7 g/dL (6.3-8.2)
[2019-07-20 20:58] VITALS: BP 131/68
== END 2019-07-20 20:58 | disposition home or self-care (01) ==
LOC: ER 17:10
DX: L02.415 Cutaneous abscess of right lower limb (principal); L03.115 Cellulitis of right lower limb; Z86.14 Personal history of Methicillin resistant Staphylococcus aureus infection; Z87.891 Personal history of nicotine dependence
CPT/HCPCS: 36415; 87040; 87070; 87205; 85025; 80053; 10060; J3010; J1885; J3490; J2405; 87075; 87077; 96374; 96375; 96376; 99283

== ENCOUNTER 2020-01-21 17:24 | Emergency (ER) | payer SELFPAY ==
--- NOTE | 2020-01-21 17:45 | ER Document Report ---
ED Oral Problem - General Stated Complaint: SORE THROAT Time Seen by Provider: 01/21/20 17:29 Primary Care Provider: PAYTON SÁNCHEZ MD [NO LOCAL MD] - Follow up as needed Notes: CHIEF COMPLAINT: Sore throat on the right side HPI: 35-year-old female with prior history of tonsillectomy presenting to the emergency department complaining of 2 to 3 days of throat discomfort worse on the right, no voice change. Reports painful swallowing. Patient states 2 days ago she was also throwing up several times. No abdominal pain complaints today. No dysuria. ROS: See HPI - all other systems were reviewed and are otherwise negative Constitutional: no fever Eyes: no drainage, no blurred vision ENT: no runny nose, + sore throat Cardiovascular: no chest pain Resp: no SOB, no cough GI: + vomiting, no diarrhea, no abdominal pain : no dysuria Integumentary: no rash Allergy: no hives Musculoskeletal: no extremity pain or swelling Neurological: no numbness/tingling, no weakness MEDICATIONS: I agree with the patient medications as charted by the RN. ALLERGIES: I agree with the allergies as charted by the RN. PAST MEDICAL HISTORY/PAST SURGICAL HISTORY: Reviewed and agree as charted by RN. SOCIAL HISTORY: Reviewed and agree as charted by RN. FAMILY HISTORY: No significant familial comorbid conditions directly related to patient complaint EXAM: Reviewed vital signs as charted by RN. CONSTITUTIONAL: Alert and oriented and responds appropriately to questions. ill- appearing; well-nourished HEAD: Normocephalic; atraumatic EYES: PERRL; Conjunctivae clear, sclerae non-icteric ENT: normal nose; no rhinorrhea; moist mucous membranes; pharynx without lesions noted, no uvula edema or deviation, phonation normal, no soft palate swelling. Mild erythema to the right soft palate NECK: Supple without meningismus; non-tender; no cervical lymphadenopathy, no masses CARD: RRR; no murmurs, no clicks, no rubs, no gallops; symmetric distal pulses RESP: Normal chest excursion without splinting or tachypnea; breath sounds clear and equal bilaterally; no wheezes, no rhonchi, no rales, pulse oximetry ABD/GI: Normal bowel sounds; non-distended; soft, non-tender, no rebound, no guarding; no palpable organomegaly or masses. BACK: The back appears normal and is non-tender to palpation, there is no CVA tenderness EXT: Normal ROM in all joints; non-tender to palpation; no cyanosis, no effusions, no edema SKIN: Slightly pale color for age and race; warm; diaphoretic; good turgor; no acute lesions noted NEURO: Moves all extremities equally; Motor and sensory function intact PSYCH: The patient's mood and manner are appropriate. Grooming and personal hygiene are appropriate. MDM: 35-year-old female with 3 days of illness, complaining of right throat pain, throwing up 2 days ago, no rash, no abdominal pain. Patient is di aphoretic, mildly pale. Appears as if she does not feel well. Will obtain a rapid strep. She has had prior tonsillectomy. There is no significant soft palate swelling to suggest an abscess at this time, no phonation changes. No significant adenopathy. Will obtain basic screening lab work, plan to hydrate the patient and will reassess TRAVEL OUTSIDE OF THE [place] IN LAST 30 DAYS: No - Related Data Allergies/Adverse Reactions: No Known Allergies Allergy (Verified 07/20/19 17:22) Past Medical History - Social History Smoking Status: Unknown if Ever Smoked Family History: Reviewed & Not Pertinent Renal/ Medical History: Reports: Hx Ovarian Cysts. Denies: Hx Peritoneal Dialysis GI Medical History: Reports: Hx Hepatitis - c, Hx Irritable Bowel Musculoskeletal Medical History: Reports Hx Musculoskeletal Deformity, Reports Hx Musculoskeletal Trauma Skin Medical History: Reports Hx Cellulitis, Reports Hx Eczema, Reports Hx MRSA, Reports Hx Psoriasis Psychiatric Medical History: Reports: Hx Anxiety Traumatic Medical History: Reports: Hx Spine Fracture - lumbar Infectious Medical History: Reports: Hx Hepatitis - c Past Surgical History: Reports: Hx Appendectomy, Hx Section, Hx Rectal Surgery, Hx Tonsillectomy - Immunizations Immunizations up to date: Yes Hx Diphtheria, Pertussis, Tetanus Vaccination: Yes Physical Exam - Vital signs Vitals: Temp 97.6 F 01/21/20 17:24 Course - Re-evaluation Re-evalutation: 01/21/20 21:06 I spoke with the reading radiologist, he indicates that the pharyngeal edema, adenopathy and fluid are not an abscess for drainage but more indicative of a retropharyngeal cellulitis. I will give the patient clindamycin and Decadron here. He does indicate that the small aneurysm that was noticed on imaging is an incidental finding patient should take care of this with neurovascular sooner than later. I spoke with the patient at length about the findings. We discussed the throat findings as well as the aneurysm at length. Patient is aware that she is at risk for sudden and should follow closely with a neurosurgeon. Patient may go to [facility] in [place] or [facility] in [place] as an outpatient for follow-up as we do not have neurovascular coverage here at [facility]. Patient will be discharged home after she receives the antibiotics and steroids, she will return in 48 hours for recheck if feeling no better. She will otherwise be referred to outpatient ENT. - Vital Signs Vital signs: Temp Pulse Resp BP Pulse Ox 97.6 F 85 18 131/76 H 98 01/21/20 17:35 01/21/20 17:35 01/21/20 20:00 01/21/20 20:00 01/21/20 20:00 - Laboratory Result Diagrams: 01/21/20 17:45 01/21/20 18:07 Laboratory results interpreted by me: 01/21/20 01/21/20 01/21/20 17:45 18:07 18:15 Jewell % (Auto) 14.3 H Sodium 136.9 L BUN 5 L Glucose 114 H Total Protein 8.7 H Urine Blood MODERATE H Discharge - Discharge Clinical Impression: Cellulitis of pharynx, Aneurysm Condition: Stable Disposition: HOME, SELF-CARE Additional Instructions: It was noticed on your imaging studies today that you have an infection in the soft tissues of the throat on the right side of the neck. This is not an abscess at this time that requires drainage but it does require close follow-up and management. You have been placed on pain medication, steroids and antibiot ics. Make sure you are taking these. Make sure you are hydrating well. If you feel worse in the next 48 hours return for reevaluation otherwise follow-up outpatient with ENT. 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 This is an abnormal collection of veins and arteries that can cause sudden . It is very important that you follow-up with a neurosurgeon or neuro vascular surgeon to have this repaired. We do not have this type of coverage at [facility] but there is coverage of this type at [facility] in [place] and also at [facility] in [place]. You should contact 1 of these facilities as soon as possible to arrange outpatient follow-up and further evaluation for repair. If you develop a sudden severe headache you should return to an emergency department immediately Prescriptions: Clindamycin HCl 300 mg PO TID #30 capsule Prednisone [Deltasone 20 mg Tablet] 20 mg PO BID #10 tablet Oxycodone HCl/Acetaminophen [Percocet 5-325 mg Tablet] 1 tab PO Q4H PRN #15 tab PRN Reason: Referrals: PAYTON SÁNCHEZ MD [NO LOCAL MD] - Follow up as needed KESHA FRIAS DO [ASSOCIATE] - Follow up as needed
[2020-01-21] MEDS ORDERED: NORMAL SALINE 1000 ML 1,000 ML IV ONE (17:46)
[2020-01-21] MEDS ORDERED: KETOROLAC TROMETHAMINE INJ/PF 30 MG/1 ML SDV IV ONE (17:46)
[2020-01-21 18:34] LABS: ABSOLUTE EOSINOPHILS # (AUTO) 0.1 10^3/uL (0.0-0.6); ABSOLUTE LYMPHOCYTES (AUTO) 1.1 10^3/uL (0.5-4.7); ABSOLUTE MONOCYTES (AUTO) 1.1 10^3/uL (0.1-1.4); ABSOLUTE NEUT (AUTO) 5.1 10^3/uL (1.7-8.2); BASOPHILS % (AUTO) 0.2 % (0-2); EOSINOPHILS % (AUTO) 1.8 % (0-6); HEMATOCRIT 40.1 % (36.0-47.0); HEMOGLOBIN 13.9 g/dL (12.0-15.5); LYMPHOCYTES % (AUTO) 15.1 % (13-45); MEAN CORPUSCULAR HEMOGLOBIN 30.9 pg (27.0-33.4); MEAN CORPUSCULAR HGB CONC 34.5 g/dL (32.0-36.0); MEAN CORPUSCULAR VOLUME 90 fl (80-97); MONOCYTES % (AUTO) 14.3 % (3-13); PLATELET COUNT 288 10^3/uL (150-450); RED BLOOD COUNT 4.48 10^6/uL (3.72-5.28); RED CELL DISTRIBUTION WIDTH 13.9 % (11.5-14.0); SEGMENTED NEUTROPHILS % (AUTO) 68.6 % (42-78); TOTAL CELLS COUNTED % (AUTO) 100 %; WHITE BLOOD COUNT 7.4 10^3/uL (4.0-10.5)
[2020-01-21 18:50] LABS: ALBUMIN 4.6 g/dL (3.5-5.0); ALKALINE PHOSPHATASE 77 U/L (38-126); ANION GAP 10 (5-19); ASPARTATE AMINO TRANSFERASE 25 U/L (14-36); BILIRUBIN,DIRECT 0.1 mg/dL (0.0-0.4); BILIRUBIN,TOTAL 0.5 mg/dL (0.2-1.3); BLOOD UREA NITROGEN 5 mg/dL (7-20); CALCIUM 9.9 mg/dL (8.4-10.2); CARBON DIOXIDE 23 mmol/L (22-30); CHLORIDE 104 mmol/L (98-107); GLUCOSE 114 mg/dL (75-110); POTASSIUM 4.9 mmol/L (3.6-5.0); TOTAL PROTEIN 8.7 g/dL (6.3-8.2)
[2020-01-21 18:52] LABS: APPEARANCE,URINE CLEAR; BILIRUBIN,URINE NEGATIVE (NEGATIVE); COLOR,URINE STRAW; GLUCOSE, URINE NEGATIVE (NEGATIVE); KETONES,URINE NEGATIVE (NEGATIVE); LEUKOCYTE ESTERASE,URINE NEGATIVE (NEGATIVE); NITRITE,URINE NEGATIVE (NEGATIVE); PROTEIN,URINE NEGATIVE (NEGATIVE); URINE SPECIFIC GRAVITY 1.003; UROBILINOGEN,URINE NEGATIVE mg/dL (<2.0)
[2020-01-21 20:28] VITALS: BP 131/76
--- NOTE | 2020-01-21 20:46 | RADIOLOGY REPORT (SQ) ---
EXAM DESCRIPTION: CT NECK WITH IV CONTRAST COMPLETED DATE/TME: 01/21/2020 18:52 CLINICAL HISTORY: 35 years, Female, right neck pain COMPARISON: None. TECHNIQUE: Contrast enhanced CT of the neck was acquired. 75 mL of Omnipaque 350 intravenous contrast was administered. Images stored on PACS. All CT scanners at this facility use dose modulation, iterative reconstruction, and/or weight based dosing when appropriate to reduce radiation dose to as low as reasonably achievable (ALARA). [facility]: Dose Right [facility]: CareDose [facility]: Dose Right [facility]: Teradose 4D [facility]: [employer] LIMITATIONS: None. FINDINGS: Limited evaluation of the chest reveals clear lungs. Thyroid gland enhances symmetrically. The hypopharynx and oropharynx appear normal. Assessment of the nasopharynx reveals bilateral adenoidal enlargement. In addition, there is mild opacity within the left nasal cavity, likely indicating retained secretion. The bilateral parotid and submandibular glands appear symmetric in size and configuration. Several small/mildly prominent bilateral deep cervical lymph nodes are noted, including a right level IIb lymph node measuring 0.8 x 1.2 cm in size. In addition, there is fluid density located about the retropharyngeal space with additional lobulated soft tissue density located about the rightward aspect of the rightward aspect of the prevertebral space on image 50 of series 3 measuring 1.2 x 1.2 cm in size, suspicious for a lymph node. A similar finding is noted about the leftward aspect of the prevertebral space on image 45 of series 3 measuring 1.0 x 0.8 cm in size. No obvious rim-enhancing fluid collection is clearly identified. In addition, this fluid density appears to extend inferiorly to the level of the C5-C6 level. Limited evaluation of the brain parenchyma reveals no suspicious abnormality. However, there is a lobulated focus of hyperenhancement located about the basilar tip measuring 0.8 x 0.6 cm in size on image 27 of series 3. Globes and orbits show no suspicious abnormality. Paranasal sinuses demonstrate minimal opacity within the left ethmoidal air cells. Mastoid air cells are clear. Cervical vertebral body heights and alignments are maintained. IMPRESSION: Mild deep cervical lymphadenopathy with adenoidal enlargement as well as fluid density within the retropharyngeal space. Suspect mildly prominent lymph nodes located within the prevertebral space. Overall, these findings could potentially indicate retropharyngeal cellulitis in the appropriate clinical setting. No obvious rim-enhancing fluid collection is clearly identified at this time. Close follow-up to resolution is recommended. 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 TECHNICAL DOCUMENTATION: Quality ID # [id number]: Final reports with documentation of one or more dose reduction techniques (e.g., Automated exposure control, adjustment of the mA and/or kV according to patient size, use of iterative reconstruction technique) copyright 2011 [employer]- All Rights Reserved
[2020-01-21] MEDS ORDERED: DEXAMETHASONE SOD PHOS INJ 10 MG/1 ML VIAL IV ONE (20:58)
[2020-01-21] MEDS ORDERED: CLINDAMYCIN 900 MG/D5W RTU 900 MG/50 ML RTUPB IV ONE (20:59)
[2020-01-21 21:08] LABS: URINE AMPHETAMINES SCREEN NEGATIVE; URINE BARBITURATES SCREEN NEGATIVE; URINE BENZODIAZEPINES SCREEN UNCONFIRMED POSITIVE; URINE COCAINE SCREEN NEGATIVE; URINE MARIJUANA (THC) SCREEN UNCONFIRMED POSITIVE; URINE METHADONE SCREEN NEGATIVE; URINE PHENCYCLIDINE SCREEN NEGATIVE
[2020-01-21] MEDS ORDERED: FENTANYL CITRATE INJ/PF 100 MCG/2 ML AMPUL IV ONE (21:08)
== END 2020-01-21 23:25 | disposition home or self-care (01) ==
LOC: ER 17:24
DX: J39.1 Other abscess of pharynx (principal); I72.9 Aneurysm of unspecified site; R13.10 Dysphagia, unspecified; R11.10 Vomiting, unspecified
CPT/HCPCS: 99283; 96361; 96375; 96365; 36415; 87070; 87880; 84703; 85025; 86308; 80053; 81001; 80307; 70491; J3010; J3490; J1885; J7030; J1100

== ENCOUNTER 2020-06-04 10:27 | Emergency (ER) | payer OTHER ==
--- NOTE | 2020-06-04 10:53 | ER Document Report ---
ED Medical Screen (RME) - General Chief Complaint: Blurred Vision Stated Complaint: HEADACHES,BLURRED VISION/POST BRAIN SURG Time Seen by Provider: 06/04/20 10:50 Mode of Arrival: Ambulatory Information source: Patient Notes: 35-year-old female presents to ED for complaint of severe headache. She states she had a aneurysm and angiogram done on 25 May. She states that they did a procedure webbing around the aneurysm and was not able to completely get rid of the aneurysm. She states she was had a syncopal episode about 4 days ago. She states she called her surgeon when she started having changes in her hearing and more dizziness. She stated the surgeon told her to go to the ER and have the doctor who is seeing her to call him so that he could let them know exactly what CAT scans to order. I have ordered the blood work and have not ordered the CAT scan until she does see the provider caring for her. She has no facial droop no deviation of the tongue no palmar drift can lift and hold up both legs as normal. She is answering all questions appropriately so I will leave the radiological testing to the doctor covering her. I have greeted and performed a rapid initial assessment of this patient. A comprehensive ED assessment and evaluation of the patient, analysis of test results and completion of medical decision making process will be conducted by an additional ED providers. TRAVEL OUTSIDE OF THE [place] IN LAST 30 DAYS: No - Related Data Allergies/Adverse Reactions: No Known Allergies Allergy (Verified 07/20/19 17:22) Home Medications: aspirin Past Medical History - Social History Frequency of alcohol use: Occasional Renal/ Medical History: Reports: Hx Ovarian Cysts. Denies: Hx Peritoneal Dialysis GI Medical History: Reports: Hx Hepatitis - c, Hx Irritable Bowel Musculoskeltal Medical History: Reports Hx Musculoskeletal Deformity, Reports Hx Musculoskeletal Trauma Skin Medical History: Reports Hx Cellulitis, Reports Hx Eczema, Reports Hx MRSA, Reports Hx Psoriasis Psychiatric Medical History: Reports: Hx Anxiety Traumatic Medical History: Reports: Hx Spine Fracture - lumbar Infectious Medical History: Reports: Hx Hepatitis - c Past Surgical History: Reports: Hx Appendectomy, Hx Section, Hx Rectal Surgery, Hx Tonsillectomy - Immunizations Immunizations up to date: Yes Hx Diphtheria, Pertussis, Tetanus Vaccination: Yes Physical Exam - Vital signs Vitals: Temp Pulse Resp BP Pulse Ox 97.9 F 54 L 16 86/62 L 100 06/04/20 10:37 06/04/20 10:37 06/04/20 10:37 06/04/20 10:37 06/04/20 10:37 Course - Vital Signs Vital signs: Temp Pulse Resp BP Pulse Ox 97.9 F 54 L 16 86/62 L 100 06/04/20 10:37 06/04/20 10:37 06/04/20 10:37 06/04/20 10:37 06/04/20 10:37
--- NOTE | 2020-06-04 11:17 | ER Document Report ---
ED General - General Chief Complaint: Blurred Vision Stated Complaint: HEADACHES,BLURRED VISION/POST BRAIN SURG Time Seen by Provider: 06/04/20 10:50 Mode of Arrival: Ambulatory Notes: HPI: Pt is a 35-year-old female who supposedly had "aneurysm webbing" performed [address] [facility] secondary to a brain aneurysm that was found incidentally. Patient states since the surgery she has had intermittent headach es, five-minute episodes of bilateral hearing loss and blurry vision, with a syncopal episode 5 days ago. She is only had one episode of syncope but the other symptomatology seems to occur about 2-3 times a day. Patient also states during these episodes she sees some bright light out of her left eye that is transient. Reviewing the patient's chart the patient was here on January 20 secondary to some pain in her throat. 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 She states she did not call or talk to [facility] until 2 days ago on Friday. When I asked her why this was the case she states "I am not sure". On Friday she was told to go directly to the nearest emergency department for imaging. She states she was having car trouble so presented today. She is not sure exactly what imaging they recommended. She is refusing a CT scan of the head and to recall [facility] and speak to 1 of the physicians. The number she gave me is to an on-call service line for radiology. Patient denies any such episodes today. ROS: See HPI All other review of systems reviewed and otherwise negative Reviewed vital signs and nursing note as charted by RN. PHYSICAL EXAM: CONSTITUTIONAL: Alert and oriented and responds appropriately to questions. Well-appearing; well-nourished HEAD: Normocephalic; atraumatic EYES: PERRL; full extraocular range of motion without nystagmus ENT: Normal nose; no rhinorrhea; moist mucous membranes; pharynx without lesions noted NECK: Supple without meningismus; non-tender; no cervical lymphadenopathy, no masses CARD: Regular rate and rhythm; no murmurs; symmetric distal pulses RESP: Normal chest excursion without splinting or tachypnea; breath sounds clear and equal bilaterally ABD/GI: Normal bowel sounds; non-distended; soft, non-tender; no palpable organomegaly or masses BACK: The back appears normal and is non-tender to palpation EXT: Normal ROM in all joints; non-tender to palpation; no edema SKIN: No acute lesions noted NEURO: CN 2-12 intact; 5/5 bilateral upper and lower extremity strength with sensation intact to light touch PSYCH: The patient's mood and manner are appropriate. Grooming and personal hygiene are appropriate TRAVEL OUTSIDE OF THE [place] IN LAST 30 DAYS: No - Related Data Allergies/Adverse Reactions: No Known Allergies Allergy (Verified 07/20/19 17:22) Home Medications: aspirin Past Medical History - General Information source: Patient - Social History Smoking Status: Current Some Day Smoker Frequency of alcohol use: Occasional Family History: Reviewed & Not Pertinent Renal/ Medical History: Reports: Hx Ovarian Cysts. Denies: Hx Peritoneal Dialysis GI Medical History: Reports: Hx Hepatitis - c, Hx Irritable Bowel Musculoskeletal Medical History: Reports Hx Musculoskeletal Deformity, Reports Hx Musculoskeletal Trauma Skin Medical History: Reports Hx Cellulitis, Reports Hx Eczema, Reports Hx MRSA, Reports Hx Psoriasis Psychiatric Medical History: Reports: Hx Anxiety Traumatic Medical History: Reports: Hx Spine Fracture - lumbar Infectious Medical History: Reports: Hx Hepatitis - c Past Surgical History: Reports: Hx Appendectomy, Hx Section, Hx Rectal Surgery, Hx Tonsillectomy - Immunizations Immunizations up to date: Yes Hx Diphtheria, Pertussis, Tetanus Vaccination: Yes Physical Exam - Vital signs Vitals: Temp Pulse Resp BP Pulse Ox 97.9 F 54 L 16 86/62 L 100 06/04/20 10:37 06/04/20 10:37 06/04/20 10:37 06/04/20 10:37 06/04/20 10:37 Course - Re-evaluation Re-evalutation: 06/04/20 11:17 Given the above history and physical with no episodes today, no focal logical deficits, I called [facility]. She had told me to call Dr. Tejinder Reardon who is a radiologist. Speaking with [facility] it does appear that the patient had this proc edure done under interventional radiology. She was then admitted to the neurosurgical service under Dr. Raymundo. Dr. Muir is currently breast surgeon for the neurosurgery team so we will page them first. 06/04/20 11:57 I did speak directly to Dr. Muir who was in the operating room and wanted me to call Dr. Raymundo. The transfer center was trying to arrange this. The transfer center instead connected me with Dr. Davis, the neuro interventional fellow at [facility]. He asked me to order the MRI of the brain with and without contrast and an MRA of the brain and the neck without contrast. I spoke with Dr. england the radiologist breast surgeon here. He has asked me to add contrast to the MRA of the neck. This is been performed. 06/04/20 11:59 EKG shows a heart of 55, normal sinus rhythm, normal axis, no ST elevation or depression. 06/04/20 12:27 The aviation safety equipment technician states she is unable to perform the procedure until she gets the operative report manufacturing web information. 06/04/20 16:40 MRI imaging as recorded. Labs as recorded. I have told the patient that we fax the information to the neurosurgeon at [facility] and we are awaiting results. The patient eloped that she did not want a wait for the results to return. - Vital Signs Vital signs: Temp Pulse Resp BP Pulse Ox 97.9 F 54 L 19 117/66 100 06/04/20 10:37 06/04/20 10:37 06/04/20 16:01 06/04/20 16:01 06/04/20 16:01 - Laboratory Result Diagrams: 06/04/20 11:23 06/04/20 11:23 Laboratory results interpreted by me: 06/04/20 06/04/20 06/04/20 11:23 11:39 11:50 POC Glucose 122 H Total Protein 8.9 H Albumin 5.1 H Ur Leukocyte Esterase TRACE H Discharge - Discharge Clinical Impression: Syncope and collapse, Blurry vision, bilateral Headache Qualifiers: Headache type: unspecified Headache chronicity pattern: episodic headache Intractability: intractable Qualified Code(s): R51.9 - Headache, unspecified Condition: Stable Disposition: AGAINST MEDICAL ADVICE
[2020-06-04 11:37] LABS: ABSOLUTE EOSINOPHILS # (AUTO) 0.4 10^3/uL (0.0-0.6); ABSOLUTE MONOCYTES (AUTO) 0.4 10^3/uL (0.1-1.4); ABSOLUTE NEUT (AUTO) 4.1 10^3/uL (1.7-8.2); HEMATOCRIT 38.9 % (36.0-47.0); MEAN CORPUSCULAR HGB CONC 35.1 g/dL (32.0-36.0); MEAN CORPUSCULAR VOLUME 89 fl (80-97)
[2020-06-04] MEDS ORDERED: NORMAL SALINE 1000 ML 1,000 ML IV ONE (11:48)
[2020-06-04 11:50] LABS: ABSOLUTE LYMPHOCYTES (AUTO) 2.7 10^3/uL (0.5-4.7); BASOPHILS % (AUTO) 0.5 % (0-2); EOSINOPHILS % (AUTO) 5.1 % (0-6); HEMOGLOBIN 13.7 g/dL (12.0-15.5); LYMPHOCYTES % (AUTO) 35.5 % (13-45); MEAN CORPUSCULAR HEMOGLOBIN 31.4 pg (27.0-33.4); MONOCYTES % (AUTO) 5.2 % (3-13); PLATELET COUNT 311 10^3/uL (150-450); RED BLOOD COUNT 4.35 10^6/uL (3.72-5.28); RED CELL DISTRIBUTION WIDTH 12.9 % (11.5-14.0); SEGMENTED NEUTROPHILS % (AUTO) 53.7 % (42-78); TOTAL CELLS COUNTED % (AUTO) 100 %; WHITE BLOOD COUNT 7.6 10^3/uL (4.0-10.5)
[2020-06-04 11:53] LABS: PARTIAL THROMBOPLASTIN TIME 26.4 SEC (23.5-35.8); PROTHROMBIN TIME 13.4 SEC (11.4-15.4)
[2020-06-04 12:00] LABS: ALBUMIN 5.1 g/dL (3.5-5.0); ALKALINE PHOSPHATASE 84 U/L (38-126); ANION GAP 11 (5-19); ASPARTATE AMINO TRANSFERASE 22 U/L (14-36); BILIRUBIN,DIRECT 0.3 mg/dL (0.0-0.4); BILIRUBIN,TOTAL 0.4 mg/dL (0.2-1.3); BLOOD UREA NITROGEN 13 mg/dL (7-20); CALCIUM 9.7 mg/dL (8.4-10.2); CARBON DIOXIDE 26 mmol/L (22-30); CHLORIDE 102 mmol/L (98-107); GLUCOSE 102 mg/dL (75-110); POTASSIUM 4.2 mmol/L (3.6-5.0); TOTAL PROTEIN 8.9 g/dL (6.3-8.2)
[2020-06-04 12:11] LABS: APPEARANCE,URINE SLIGHTLY-CLOUDY; BILIRUBIN,URINE NEGATIVE (NEGATIVE); COLOR,URINE YELLOW; GLUCOSE, URINE NEGATIVE (NEGATIVE); KETONES,URINE NEGATIVE (NEGATIVE); LEUKOCYTE ESTERASE,URINE TRACE (NEGATIVE); NITRITE,URINE NEGATIVE (NEGATIVE); PROTEIN,URINE NEGATIVE (NEGATIVE); URINE SPECIFIC GRAVITY 1.014; UROBILINOGEN,URINE NEGATIVE mg/dL (<2.0)
--- NOTE | 2020-06-04 12:40 | EKG REPORT ---
SEVERITY:- BORDERLINE ECG - SINUS BRADYCARDIA PROBABLE LEFT ATRIAL ABNORMALITY : Confirmed by: Jaspal Pennington MD 04-Jun-2020 12:39:41
[2020-06-04] MEDS ORDERED: LORAZEPAM INJ 2 MG/1 ML VIAL IV ONE (13:21)
--- NOTE | 2020-06-04 15:10 | RADIOLOGY REPORT (SQ) ---
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 Basilar artery aneurysm. COMPARISON: CT soft tissue neck, 01/21/2020. TECHNIQUE: Axial 3-D [id number] acquisition imaging performed through the brain in the area of t he [place]. Images reformatted using 3-D MIPS. Axial 2-D volume acquisition imaging through the extracranial carotid and vertebral arteries with ref ormatting using 3-D MIPS. LIMITATIONS: None. FINDINGS: MRA HEAD: SOURCE IMAGES: Artifact in the region of the previously described a basilar artery aneurysm is noted, consistent with recent surgical procedure. There is a persistent 2 mm focus of enhancement along th e right aspect of the aneurysm site, possibly some residual flow within the aneurysm sac. No corresp onding hyperintense T1 signal and source images to suggest small thrombus. The anterior and middle c erebral arteries are widely patent with no aneurysm or stenosis. No posterior communicating arteries are seen. The basilar artery is widely patent. Bilateral P1 segments and posterior cerebral arteri es are widely patent. 3-D MIP: Tiny 2 mm outpouching along the right lateral aspect of the previously described basilar ane urysm. . No occlusions. No significant stenosis. OTHER: No other significant finding. MRA NECK: RIGHT CAROTID ARTERY: No stenosis or occlusive changes. Limited visualization of the origin. LEFT CAROTID ARTERY: No stenosis or occlusive changes. Limited visualization of the origin. VERTEBRAL ARTERY: The extracranial portions of the vertebral basilar system are preserved without ernesto nosis. No aneurysmal dilatation or dissection is seen. OTHER: No other significant finding. IMPRESSION: 1. Flow-void in the region of previous basilar aneurysm consistent with surgical procedure. There is a 2 mm residual outpouching demonstrating vascular flow signal adjacent to the right side of the pre viously described aneurysm sac. Attention on follow-up is recommended. No other aneurysm, stenosis, or branch occlusion of the intracranial or carotid arteries. COMMENT: Quality ID #[id number]: Measurements of distal internal carotid diameter were used as the denomin ator for stenosis measurement. TECHNICAL DOCUMENTATION: JOB ID: [id number] 2010 [employer]- All Rights Reserved Reading location - IP/workstation name: [email or web address]
--- NOTE | 2020-06-04 15:10 | RADIOLOGY REPORT (SQ) ---
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 Basilar artery aneurysm. COMPARISON: CT soft tissue neck, 01/21/2020. TECHNIQUE: Axial 3-D otub-dw-[id number] acquisition imaging performed through the brain in the area of t he [place] of [place]. Images reformatted using 3-D MIPS. Axial 2-D volume acquisition imaging through the extracranial carotid and vertebral arteries with ref ormatting using 3-D MIPS. LIMITATIONS: None. FINDINGS: MRA HEAD: SOURCE IMAGES: Artifact in the region of the previously described a basilar artery aneurysm is noted, consistent with recent surgical procedure. There is a persistent 2 mm focus of enhancement along th e right aspect of the aneurysm site, possibly some residual flow within the aneurysm sac. No corresp onding hyperintense T1 signal and source images to suggest small thrombus. The anterior and middle c erebral arteries are widely patent with no aneurysm or stenosis. No posterior communicating arteries are seen. The basilar artery is widely patent. Bilateral P1 segments and posterior cerebral arteri es are widely patent. 3-D MIP: Tiny 2 mm outpouching along the right lateral aspect of the previously described basilar ane urysm. . No occlusions. No significant stenosis. OTHER: No other significant finding. MRA NECK: RIGHT CAROTID ARTERY: No stenosis or occlusive changes. Limited visualization of the origin. LEFT CAROTID ARTERY: No stenosis or occlusive changes. Limited visualization of the origin. VERTEBRAL ARTERY: The extracranial portions of the vertebral basilar system are preserved without ernesto nosis. No aneurysmal dilatation or dissection is seen. OTHER: No other significant finding. IMPRESSION: 1. Flow-void in the region of previous basilar aneurysm consistent with surgical procedure. There is a 2 mm residual outpouching demonstrating vascular flow signal adjacent to the right side of the pre viously described aneurysm sac. Attention on follow-up is recommended. No other aneurysm, stenosis, or branch occlusion of the intracranial or carotid arteries. COMMENT: Quality ID #[id number]: Measurements of distal internal carotid diameter were used as the denomin ator for stenosis measurement. TECHNICAL DOCUMENTATION: JOB ID: [id number] 2010 [employer]- All Rights Reserved Reading location - IP/workstation name: [email or web address]
--- NOTE | 2020-06-04 15:13 | RADIOLOGY REPORT (SQ) ---
EXAM DESCRIPTION: MRI HEAD COMBO IMAGES COMPLETED DATE/TIME: 06/04/2020 1:51 pm REASON FOR STUDY: MP; May 22 basilar artery aneurysm webbing. Patient reports bright light in the left eye, headache, syncope 5 days ago, intermittent hearing loss. Recent aneurysm repair in 2019. COMPARISON: CT soft tissue neck, 01/21/2020 TECHNIQUE: Multiplanar imaging includes noncontrasted T1, T2, FLAIR, diffusion with ADC map and post gadolinium contrast T1 sequences. Images stored on PACS. CONTRAST TYPE AND DOSE: 20 mL ProHance RENAL FUNCTION: Not indicated. ACR Type II contrast agent associated with few, if any, unconfounded cases of NSF LIMITATIONS: None. FINDINGS: ANATOMY: No anomalies. Normal vascular flow voids. Pituitary fossa normal. CSF SPACES: Normal in size and contour. No hemorrhage. CEREBRUM: Sulci and gyri normal in size and contour. Normal white matter signal on FLAIR imaging. No evidence of hemorrhage, mass, or extraaxial fluid collection. No abnormal enhancement post contrast. POSTERIOR FOSSA: No signal alteration. No hemorrhage. No edema, masses, or mass effect. Internal hillary tory canals, cerebellopontine angles, mastoids normal. No enhancing lesions. No abnormal enhancement post contrast. DIFFUSION IMAGING: Negative for acute or subacute infarction. ORBITS: No masses. Globes normal. PARANASAL SINUSES: No fluid levels. Mucosa normal. OTHER: No other significant finding. IMPRESSION: No intracranial ischemia, mass, mass effect, or evidence of intracranial hemorrhage. EVIDENCE OF ACUTE STROKE: NO. TECHNICAL DOCUMENTATION: JOB ID: [id number] 2010 [employer]- All Rights Reserved Reading location - IP/workstation name: [email or web address]
[2020-06-04] MEDS ORDERED: HYDROCODONE/ACETAMINOPHEN 5-325 MG TABLET PO ONE (15:37)
[2020-06-04 16:32] VITALS: BP 117/66
== END 2020-06-04 16:34 | disposition left against medical advice (07) ==
LOC: ER 10:27
DX: H53.8 Other visual disturbances (principal); R51.9 Headache, unspecified; R55 Syncope and collapse
CPT/HCPCS: 93005; 99285; 96361; 96374; 36415; 87086; 82962; 84703; 85025; 85610; 85730; 80053; 81001; 70553; 70544; 70549; 93010; A9576; J2060; J7030